=== PATIENT | female | born 1990 | race Caucasian/White ===

== ENCOUNTER 2018-11-14 18:06 | Emergency (ER) | payer BC ==
[2018-11-14] MEDS ORDERED: Adacel (T-DAP) 0.5 ML SYRINGE ONE (19:05)
== END 2018-11-14 19:31 | disposition home or self-care (01) ==
LOC: ERS 18:06
DX: S61.212A Laceration without foreign body of right middle finger without damage to nail, initial encounter (principal); W26.0XXA Contact with knife, initial encounter
CPT/HCPCS: 12001; 90471; 90715

== ENCOUNTER 2018-11-15 11:29 | Emergency (ER) | payer BC | END 2018-11-15 12:38 | disposition home or self-care (01) | LOC: ERS 11:29 | DX: S61.212D Laceration without foreign body of right middle finger without damage to nail, subsequent encounter (principal); W45.8XXA Other foreign body or object entering through skin, initial encounter | CPT/HCPCS: 99282 ==

== ENCOUNTER 2019-04-23 15:24 | Emergency (ER) | payer BC ==
[2019-04-23] MEDS ORDERED: Dexamethasone 4 mg/ml Vial ONE (15:57)
== END 2019-04-23 16:03 | disposition home or self-care (01) ==
LOC: ERS 15:24
DX: J02.9 Acute pharyngitis, unspecified (principal)
CPT/HCPCS: 93005; J1100

== ENCOUNTER 2019-12-08 15:02 | Day surgery (SDC) | payer BC ==
[2019-12-08 15:51] VITALS: BMI 30.8
[2019-12-08] MEDS ORDERED: hydrALAZINE 20 MG/ML VIAL SLOW IVP PRN (16:18)
--- NOTE | 2019-12-08 16:54 | ER ---
DATE OF SERVICE: 12/08/2019 TIME OF SERVICE: 1615 hours. PRESENTING COMPLAINT: A 36 weeks' gestation with decreased movement x1 day. HISTORY OF PRESENT ILLNESS: Ms. Real is a 29-year-old primigravida with EDC of 01/04, scheduled for a primary section next week due to spinal stenosis. She reports some decrease in movement over the past day, she reports positive movement, however, denies rupture of membranes, denies contractions. MANAGER SUPPORT SERVICES HISTORY: As noted. Blood type A positive. Antibody negative. Pap negative. Rubella immune. VDRL nonreactive. Hepatitis B, GC, and Chlamydia are negative. Normal 3-hour GTT. 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 SURGICAL HISTORY: Back surgery with spinal stenosis, recommended primary section. ALLERGIES: DENIES. MEDICATIONS: 1. Fluconazole. 2. vitamins. SOCIAL HISTORY: Denies tobacco, alcohol, or IV drug use. FAMILY HISTORY: Noncontributory. REVIEW OF SYSTEMS: Noncontributory. PHYSICAL EXAMINATION: GENERAL: White female, resting comfortably. VITAL SIGNS: Temperature 98.7, pulse 85, blood pressure 118/72. HEENT: Within normal limits. LUNGS: Clear to auscultation bilaterally. HEART: Regular rate and rhythm. ABDOMEN: Soft and nontender with a fundal height of 36. PELVIC: Deferred. EXTREMITIES: Without clubbing, cyanosis, or edema. DTRs are 1+. heart rate tracing was carried out. Nonstress test was performed for indication of decreased movement. Category 1 heart rate tracing with positive accelerations, no decelerations, and an occasional uterine irritability was noted. This is a reassuring and reactive heart rate tracing. IMPRESSION: Decreased movement with reactive nonstress test. On questioning with the patient, it sounds like movement decreased is consistent with normal decrease in movement in the last month of gestation. PLAN: Discussed with the patient appropriate monitoring and daily kick counts. The patient was given ER precautions to return if she has any perception of further decrease in movement. The patient has appointment with Dr. Mcdowell in 3 days. Primary section scheduled in 1 week. Job ID: [id number]
== END 2019-12-08 16:30 | disposition home or self-care (01) ==
LOC: L&D/OP 15:02
PROVIDERS: ATTEND Student in an Organized Health Care Education/Training Program
DX: O36.8130 Decreased fetal movements, third trimester, not applicable or unspecified (principal); O99.89 Other specified diseases and conditions complicating pregnancy, childbirth and the puerperium; M48.00 Spinal stenosis, site unspecified; Z3A.36 36 weeks gestation of pregnancy; Z88.2 Allergy status to sulfonamides

== ENCOUNTER 2019-12-15 05:34 | Inpatient (IN) | payer BC ==
[2019-12-15] MEDS ORDERED: hydrALAZINE 20 MG/ML VIAL SLOW IVP PRN ×2 (05:37→08:25)
[2019-12-15] MEDS ORDERED: Promethazine HCl 25 MG/ML VIAL IM PRN ×3 (05:37→08:41)
[2019-12-15] MEDS ORDERED: CEFAZOLIN 2 GM in Premix Bag 1 BAG IVPB SCH (05:37)
[2019-12-15] MEDS ORDERED: Bicitra 30 ML UDCUP PO SCH (05:37)
[2019-12-15] MEDS ORDERED: Butorphanol Tartrate 1 MG/ML VIAL SLOW IVP PRN ×2 (05:37→20:45)
[2019-12-15] MEDS ORDERED: Ondansetron PF 4 MG/2 ML Vial IVP PRN ×3 (05:37→08:41)
[2019-12-15] MEDS ORDERED: Acetaminophen 500 MG TAB PO PRN (05:37)
[2019-12-15] MEDS: Lactated Ringer's 1,000 ML IV SCH ×3 (06:10→22:36)
[2019-12-15 06:15] VITALS: BMI 31.8
[2019-12-15 06:36] LABS: Hemoglobin 13.1 g/dL (12.0-16.0); Mean Corpuscular HGB CONC 33.7 g/dL (32.0-36.0); Mean Corpuscular Hemoglobin 28.6 pg (27.0-31.0); Mean Corpuscular Volume 84.7 fL (78.0-98.0); Platelet Count 168 thou/uL (130-400); RBC Distribution Width 12.2 % (11.5-14.5); Red Blood Cell (RBC) Count 4.58 mill/uL (4.20-5.40); White Blood Cell (WBC) Count 8.6 thou/uL (4.8-10.8)
[2019-12-15 07:14] LABS: HBSAg Index 0.19 S/CO (0-0.99); Hep B Surf Ag Non-Reactive S/CO (NonReactive); Syphilis Antibody Nonreactive (Nonreactive); Syphilis Antibody Index 0.03 S/CO (<1.00 Non-Reactive)
[2019-12-15] MEDS ORDERED: MORPHINE 5 MG/10 ML PF VIAL ONE (07:21)
[2019-12-15] MEDS ORDERED: EPHEDRINE 25 MG/5 ML SYRINGE ONE (07:22)
[2019-12-15] MEDS ORDERED: Ondansetron PF 4 MG/2 ML Vial ONE (07:22)
[2019-12-15] MEDS ORDERED: Oxytocin 10 UNITS/ML VIAL ONE ×2 (07:22→08:14)
--- NOTE | 2019-12-15 07:25 | PDOC.LDHP ---
Labor and Delivery H&P Chief complaint: scheduled section HPI: 29yo at 37w0d by LMP here for PCS due to severe spinal stenosis and brucella exposure about 2-3 weeks ago at patient's job.Pt has been on prophylactic rifampin and is having serial brucella titers drawn through [employer] [facility]. Current gestational age (weeks): 37 Dating criteria: last menstrual period Grav: 1 Para: 0 Current complications: none Abnormal US findings: No Past Medical History: spinal stenosis Current medications: pre- vitamins Previous surgical history: none Allergies/Adverse Reactions: Allergies Allergy/AdvReac Type Severity Reaction Status Date / Time sulfacetamide Allergy Severe Anaphylaxis Verified 12/15/19 06:04 [From Sulfamide] Social history: none - Physical Exam Vital signs reviewed and normal: yes General: NAD Heart: RRR Lungs: CTAB Abdomen: gravid Extremeties: no edema FHT: category 1 Osborn contractions every: none - OB Labs RH: positive Antibody Screen: negative HIV: negative RPR: negative HEPSAg: negative 1 hour GCT: negative GBS: negative Urine drug screen: negative Rubella: immune - Assessment L&D Assessment: scheduled primary section - Plan Plan: admit to L&D, to OR for section, informed consent obtained, anesthesia consult for pain management
[2019-12-15] MEDS ORDERED: Lanolin Ointment 7 GM TUBE TOP PRN (08:25)
[2019-12-15] MEDS ORDERED: Bisacodyl 10 MG SUPP PR PRN (08:25)
[2019-12-15] MEDS ORDERED: Zolpidem Tartrate 5 MG TAB PO PRN (08:25)
[2019-12-15] MEDS ORDERED: Adacel (T-DAP) 0.5 ML SYRINGE IM ONE (08:25)
[2019-12-15] MEDS ORDERED: diphenhydrAMINE 25 MG CAP PO PRN (08:25)
[2019-12-15] MEDS ORDERED: HYDROmorphone 2 MG/ML VIAL SLOW IVP PRN (08:41)
[2019-12-15] MEDS ORDERED: Ondansetron HCl/PF 4 MG/2 ML Vial IVP PRN (08:41)
[2019-12-15] MEDS ORDERED: Naloxone HCl 0.4 mg/ml Vial IV PRN (08:41)
[2019-12-15] MEDS ORDERED: L&D-Morphine 4 MG/ML VIAL SLOW IVP PRN (08:41)
[2019-12-15] MEDS ORDERED: Meperidine HCl/PF 25 MG/ML VIAL SLOW IVP PRN (08:41)
[2019-12-15] MEDS ORDERED: Naloxone HCl 0.4 mg/ml Vial IVP PRN ×2 (08:41)
[2019-12-15] MEDS ORDERED: Promethazine HCl 25 MG SUPP PR PRN (08:41)
[2019-12-15] MEDS ORDERED: Ketorolac Tromethamine 30 MG/ML VIAL IVP SCH (08:45)
[2019-12-15] MEDS ORDERED: Communication Order-Pharmacy FS SCH (08:45)
--- NOTE | 2019-12-15 09:23 | PDOC.OPDEL ---
OB Operative/Delivery Note Delivery Dr/Surgeon: Jeremias Assist: Juan Pre-Delivery Diagnosis: scheduled section Procedure/Post Delivery Dx: primary low transverse CS (37w, brucella exposure, severe spinal stenosis) Weeks gestation: 37 Anesthesia: spinal - Findings A Weight: 6 lb 8 oz - 1 min: 9 - 5 min: 9 - Additional Findings/Plan Placenta delivered: spontaneous findings: low transverse hysterotomy without extension, normal uterus, normal tubes, normal ovaries Estimated blood loss: 600CC Post delivery plan: routine recovery
[2019-12-15] MEDS: diphenhydrAMINE 50 MG/ML VIAL IVP PRN ×2 (12:49→16:51)
[2019-12-15] MEDS: Rifampin 300 MG CAP PO SCH ×2 (13:49→22:37)
[2019-12-15] MEDS: Prenatal Vitamin 1 TAB PO SCH (13:49)
[2019-12-15] MEDS: Docusate Calcium (SURFAK) 240 MG CAP PO SCH ×2 (13:49→21:33)
[2019-12-15] MEDS: Ferrous Sulfate 325 MG TAB PO SCH (17:08)
[2019-12-15] MEDS: Ketorolac Tromethamine 30 MG/ML VIAL IVP PRN (17:23)
[2019-12-15] MEDS: Simethicone Chewable 80 MG TAB PO PRN (21:34)
[2019-12-15] MEDS: HYDROcodone/Acetaminophen 5/325 mg Tablet PO PRN (21:35)
[2019-12-16] MEDS: Ketorolac Tromethamine 30 MG/ML VIAL IVP PRN (01:14)
[2019-12-16] MEDS: Simethicone Chewable 80 MG TAB PO PRN ×3 (03:59→21:42)
[2019-12-16] MEDS: HYDROcodone/Acetaminophen 5/325 mg Tablet PO PRN ×5 (04:00→21:40)
[2019-12-16] MEDS: Lactated Ringer's 1,000 ML IV SCH ×3 (05:38→21:08)
[2019-12-16 05:43] LABS: Hemoglobin 11.8 g/dL (12.0-16.0); Mean Corpuscular HGB CONC 33.6 g/dL (32.0-36.0); Mean Corpuscular Hemoglobin 29.2 pg (27.0-31.0); Mean Platelet Volume 8.4 fL (7.4-10.4); Platelet Count 135 thou/uL (130-400); RBC Distribution Width 12.3 % (11.5-14.5); Red Blood Cell (RBC) Count 4.02 mill/uL (4.20-5.40); White Blood Cell (WBC) Count 11.2 thou/uL (4.8-10.8)
[2019-12-16] MEDS: Prenatal Vitamin 1 TAB PO SCH (08:02)
[2019-12-16] MEDS: Docusate Calcium (SURFAK) 240 MG CAP PO SCH ×2 (08:02→20:47)
[2019-12-16] MEDS: Ferrous Sulfate 325 MG TAB PO SCH ×2 (08:03→18:12)
--- NOTE | 2019-12-16 09:08 | PDOC.PP ---
Post Progress Note Post Day #: 1 Subjective: 29 yo s/p pLTCS with brucella exposure and severe spinal stenosis. Doing well. Abd pain but improved with pain medications. Endorses flatus. Minimal VB per nursing. Eating well. Spontaneously voiding. without issues. No concerns at this time. Vital Signs (12 hours) Temp Pulse Resp BP Pulse Ox 12/16/19 07:15 98.4 F 68 16 128/77 92 L 12/16/19 04:03 98.1 F 75 16 126/86 93 L 12/16/19 00:35 98.3 F 76 18 117/68 94 L Weight Weight 81.647 kg - Physical Examination General: NAD Respiratory: non-labored breathing Abdominal: no distention, appropriately TTP Skin: CS incision dry & intact Neurological: no gross focal deficits Psychiatric: A&Ox3, normal affect Result Diagrams: 12/16/19 05:21 Additional Labs: Post Labs Blood Type A POSITIVE 12/15/19 06:50 Hep Bs Antigen Non-Reactive S/CO (NonReactive) 12/15/19 06:24 (1) S/P section Code(s): Z98.891 - HISTORY OF UTERINE SCAR FROM PREVIOUS SURGERY Status: Acute (2) Brucella Code(s): A23.9 - BRUCELLOSIS, UNSPECIFIED Status: Acute (3) Spinal stenosis Code(s): M48.00 - SPINAL STENOSIS, SITE UNSPECIFIED Status: Acute - Assessment/Plan 1. pLTCS, POD1 -Doing well, bandaged removed -Minimal bleeding -Some skin exposed areas raw from bandage will apply topical triple abx in area -Remove rest of tefla pad that is adhered in the shower to prevent dehiscence -ADAT -Continue with wound care 2. Brucella exposure -Continue rifampin ppx 3. Severe spinal stenosis -Continue current management Dispo: D/C pending clinical course Discussed with Dr. Gorman Addendum - Attending - Attending Attestation Date/Time: 12/16/19 [id number] I personally evaluated the patient and discussed the management with Dr. Nassar I agree with the History, Examination, Assessment and Plan documented above with any addition or exceptions noted below.
[2019-12-16] MEDS: Triple Antibiotic Oint 1 GM Packet TOP SCH ×3 (12:13→20:47)
[2019-12-16] MEDS: Rifampin 300 MG CAP PO SCH ×2 (12:44→21:41)
[2019-12-16] MEDS: Ibuprofen 800 MG TAB PO SCH ×2 (14:02→21:41)
[2019-12-17] MEDS: Lactated Ringer's 1,000 ML IV SCH ×3 (04:16→23:47)
[2019-12-17] MEDS: HYDROcodone/Acetaminophen 5/325 mg Tablet PO PRN ×4 (05:19→19:04)
[2019-12-17] MEDS: Ibuprofen 800 MG TAB PO SCH ×3 (05:20→21:51)
--- NOTE | 2019-12-17 07:19 | PDOC.PP ---
Post Progress Note Post Day #: 2 Subjective: NAEO. Pain worsened when standing. Urinating without difficulty. Eating without difficulty. No significant VB. PO intake tolerated: yes Flatus: yes Ambulation: yes Vital Signs (12 hours) Temp Pulse Resp BP Pulse Ox 12/17/19 05:16 97.7 F 74 14 136/85 96 12/17/19 00:25 98.0 F 78 18 114/71 95 12/16/19 20:15 98.6 F 83 16 119/76 97 Weight Weight 81.647 kg - Physical Examination General: NAD Respiratory: non-labored breathing Abdominal: no distention, appropriately TTP Neurological: no gross focal deficits Psychiatric: A&Ox3, normal affect Result Diagrams: 12/16/19 05:21 Additional Labs: Post Labs Blood Type A POSITIVE 12/15/19 06:50 Hep Bs Antigen Non-Reactive S/CO (NonReactive) 12/15/19 06:24 (1) S/P section Code(s): Z98.891 - HISTORY OF UTERINE SCAR FROM PREVIOUS SURGERY Status: Acute (2) Brucella Code(s): A23.9 - BRUCELLOSIS, UNSPECIFIED Status: Acute (3) Spinal stenosis Code(s): M48.00 - SPINAL STENOSIS, SITE UNSPECIFIED Status: Acute - Assessment/Plan 1. pLTCS, POD1 -Doing well, incision clean, dry and intact with part of tefla still attached- will try for removal in shower -Some skin exposed areas raw from bandage will continue topical triple abx in area -ADAT -Continue with wound care 2. Brucella exposure -Continue rifampin ppx 3. Severe spinal stenosis -Continue current management Dispo: D/C likely tomorrow pending clinical course Discussed with Dr. Gorman
[2019-12-17] MEDS: Ferrous Sulfate 325 MG TAB PO SCH ×2 (08:49→17:10)
[2019-12-17] MEDS: Prenatal Vitamin 1 TAB PO SCH (08:51)
[2019-12-17] MEDS: Docusate Calcium (SURFAK) 240 MG CAP PO SCH ×2 (08:51→21:51)
[2019-12-17] MEDS: Rifampin 300 MG CAP PO SCH (08:55)
[2019-12-17] MEDS: Triple Antibiotic Oint 1 GM Packet TOP SCH ×3 (08:55→21:51)
[2019-12-17] MEDS: Simethicone Chewable 80 MG TAB PO PRN (21:51)
[2019-12-18] MEDS: Rifampin 300 MG CAP PO SCH ×3 (00:06→21:56)
[2019-12-18] MEDS: Ibuprofen 800 MG TAB PO SCH ×3 (05:11→20:59)
[2019-12-18] MEDS: HYDROcodone/Acetaminophen 5/325 mg Tablet PO PRN ×4 (05:13→21:56)
[2019-12-18] MEDS: Lactated Ringer's 1,000 ML IV SCH ×3 (06:09→22:09)
--- NOTE | 2019-12-18 09:26 | PDOC.PP ---
Post Progress Note Post Day #: 3 PO intake tolerated: yes Flatus: yes Ambulation: yes Vital Signs (12 hours) Temp Pulse Resp BP Pulse Ox 12/18/19 07:48 98.8 F 74 20 123/88 96 Weight Weight 180 lb - Physical Examination General: NAD Respiratory: non-labored breathing Abdominal: no distention, appropriately TTP Fundus firm & at: umb-2 Skin: CS incision dry & intact Neurological: no gross focal deficits Psychiatric: normal affect Result Diagrams: 12/16/19 05:21 Additional Labs: Post Labs Blood Type A POSITIVE 12/15/19 06:50 Hep Bs Antigen Non-Reactive S/CO (NonReactive) 12/15/19 06:24 - Assessment/Plan POD3 s/p PCS for spinal stenosis VSSAF Doing well postop, met all milestones Rh pos RImm DC home FU 2 wk
[2019-12-18] MEDS: Docusate Calcium (SURFAK) 240 MG CAP PO SCH ×2 (09:57→20:59)
[2019-12-18] MEDS: Prenatal Vitamin 1 TAB PO SCH (09:57)
[2019-12-18] MEDS: Triple Antibiotic Oint 1 GM Packet TOP SCH ×3 (09:58→21:56)
[2019-12-18] MEDS: Ferrous Sulfate 325 MG TAB PO SCH ×2 (09:59→17:11)
[2019-12-18] MEDS: Mupirocin 2% Ointment 22 GM Tube TOP SCH ×2 (15:14→21:02)
[2019-12-19] MEDS: Ibuprofen 800 MG TAB PO SCH (06:12)
[2019-12-19] MEDS: Lactated Ringer's 1,000 ML IV SCH (06:14)
[2019-12-19 08:34] VITALS: BP 131/92; TEMP 98.5
[2019-12-19] MEDS: Mupirocin 2% Ointment 22 GM Tube TOP SCH (09:40)
[2019-12-19] MEDS: Ferrous Sulfate 325 MG TAB PO SCH (09:41)
[2019-12-19] MEDS: Prenatal Vitamin 1 TAB PO SCH (09:41)
[2019-12-19] MEDS: Docusate Calcium (SURFAK) 240 MG CAP PO SCH (09:41)
[2019-12-19] MEDS: Triple Antibiotic Oint 1 GM Packet TOP SCH (09:41)
[2019-12-19] MEDS: Rifampin 300 MG CAP PO SCH (09:41)
--- NOTE | 2019-12-19 11:32 | PDOC.PP ---
Post Progress Note Post Day #: 4 PO intake tolerated: yes Flatus: yes Ambulation: yes Vital Signs (12 hours) Temp Pulse Resp BP Pulse Ox 12/19/19 08:34 98.5 F 85 20 131/92 H 97 12/19/19 08:05 97 Weight Weight 180 lb - Physical Examination General: NAD Respiratory: non-labored breathing Abdominal: no distention, appropriately TTP Fundus firm & at: umb-2 Skin: CS incision dry & intact Deviation from normal: denuded areas on abdomen from tape related to CS dressing , no e/o infection Neurological: no gross focal deficits Psychiatric: normal affect Result Diagrams: 12/16/19 05:21 Additional Labs: Post Labs Blood Type A POSITIVE 12/15/19 06:50 Hep Bs Antigen Non-Reactive S/CO (NonReactive) 12/15/19 06:24 - Assessment/Plan POD4 s/p PCS VSSAF BP mildly elevated no sx PIH, cont to monitor Met all other milestones Rh pos RImm Cont rifampin for brucella exposure DC home FU 2 week
--- NOTE | 2019-12-20 22:44 | PQF ---
Deanna Real JANELLE [id number] CLINICAL DOCUMENTATION CLARIFICATION FORM: POST DISCHARGE Addendum to original discharge summary date: ____ Late entry note date: __ DATE:12/20/2019 ATTN:LELA MCDOWELL Please exercise your independent, professional judgment in responding to the clarification form. Clinical indicators are provided on the bottom of this form for your review Please check appropriate box(s): [ ] Acute blood loss anemia [ X ] Post-op anemia related to acute blood loss [ ] Anemia NOS [ ] Other diagnosis [ ] Unable to determine In addition, please specify: Present on Admission (POA): [ ] Yes [ X] No [ ] Unable to determine For continuity of documentation, please document condition throughout progress notes and discharge summary. Thank You. CLINICAL INDICATORS - SIGNS / SYMPTOMS / LABS HGB-13.1 to 11.8, HCT-38.8 to 35.0-Documented in Laboratory Estimated blood [id number] in OB OP note by jenifer Mcdowell MD Primary low transverse -Documented in OB OP note by jenifer Mcdowell MD RISK FACTORS Primary low transverse -Documented in OB OP note by jenifer Mcdowell MD TREATMENTS: Ferrous sulfate 325 mg PO -Documented in Medication snaphot (This form is maintained as a part of the permanent medical record) 2014 [employer]. All Rights Reserved [email or web address]
--- NOTE | 2019-12-21 10:57 | OP ---
DATE OF PROCEDURE: 12/15/2019 PREOPERATIVE DIAGNOSES: 1. Intrauterine at 37 weeks and 0 days. 2. Severe spinal stenosis, declines trial of labor. 3. Varicella exposure in the third trimester. POSTOPERATIVE DIAGNOSES: 1. Intrauterine at 37 weeks and 0 days. 2. Severe spinal stenosis, declines trial of labor. 3. Varicella exposure in the third trimester. PROCEDURE PERFORMED: Primary low-transverse section via Pfannenstiel skin incision. ANESTHESIA: Spinal. RADIATION ENGINEER SURGEON: Carrie Martinez PA-C ESTIMATED BLOOD LOSS: 365 mL. COMPLICATIONS: None. DRAINS: Brice catheter. PATHOLOGY: None. FINDINGS: Male infant, cephalic presentation, clear amniotic fluid, weighing 6 pounds 8 ounces, Apgars of 9 and 9. Hysterotomy without extension. Normal uterus, ovaries, and tubes bilaterally. DESCRIPTION OF PROCEDURE: The patient was taken to the operating room, where spinal anesthesia was obtained without difficulty. The patient was prepped and draped in a sterile fashion in the dorsal supine position with a leftward tilt. After ensuring adequacy of anesthesia, a Pfannenstiel skin incision was made and carried down to the underlying subcutaneous tissue with the knife. The fascia was nicked in the midline with the Bovie and carried laterally with the Chase scissors. The superior aspect of the fascia was tented with 2 Aleksander's and dissected off the rectus with the Chase's. The inferior aspect of the fascia was tented with 2 Aleksander's and dissected off the rectus with the Chase's as well down to the pubic symphysis. The rectus was bluntly divided in the midline and the peritoneum was bluntly entered into and manually retracted. The Neftaly O retractor was placed, and the lower uterine segment was incised in a transverse fashion and extended with a Reyes maneuver. The 's head was brought to the hysterotomy and delivered easily with fundal pressure. The 's cord was clamped after doing delayed cord clamping and infant handed to awaiting Christopher team. Cord blood was obtained and the placenta was allowed to spontaneously deliver. The uterus was exteriorized, cleared of all clots and debris, and the posterior cul-de-sac was left out. The uterus was placed back into the abdomen and repaired with a #1 Monocryl in a running locking fashion with excellent hemostasis. The pelvis was copiously irrigated and suctioned. Hemostasis was noted of the hysterotomy. The Neftaly O retractor was removed and the rectus muscles were examined and noted to be hemostatic. The fascia was reapproximated with a 0 PDS times x1 suture with excellent reapproximation. The subcutaneous tissue was irrigated and cauterized of any bleeders and reapproximated with a 2-0 plain gut in a running fashion. The skin was closed with 4-0 Monocryl in a subcuticular fashion. Dermabond was applied as well as pressure dressing. The patient tolerated the procedure well. Sponge, lap, and needle counts were correct x2. The patient was taken to recovery room in stable condition. The patient received Ancef 2 g prior to the procedure. Job ID: [id number]
== END 2019-12-19 12:46 | disposition home or self-care (01) | DRG 787 ==
LOC: L&D 05:34 → 3SW 12:07
PROVIDERS: ADMIT Student in an Organized Health Care Education/Training Program; ATTEND Student in an Organized Health Care Education/Training Program
PROC: 10D00Z1 Extraction of Products of Conception, Low, Open Approach (ICD-10-PCS; principal; 2019-12-15)
DX: O75.89 Other specified complications of labor and delivery (principal); D62 Acute posthemorrhagic anemia; O99.02 Anemia complicating childbirth; M48.00 Spinal stenosis, site unspecified; Z3A.37 37 weeks gestation of pregnancy; Z37.0 Single live birth; Z20.818 Contact with and (suspected) exposure to other bacterial communicable diseases
CPT/HCPCS: 36415; 51702; 85027; 86780; 86850; 86900; 86901; 87340; J0690; J1200; J1885; J2274; J2405; J2590; Q0163

== ENCOUNTER 2022-11-23 13:30 | Emergency (ER) | payer OTHER, BC ==
[2022-11-23] MEDS ORDERED: Acetaminophen 325 MG TAB ONE (16:30)
[2022-11-23] MEDS ORDERED: Triple Antibiotic Oint 1 GM Packet ONE (16:30)
== END 2022-11-23 16:35 | disposition home or self-care (01) ==
LOC: ERS 13:30
DX: S01.551A Open bite of lip, initial encounter (principal); W54.0XXA Bitten by dog, initial encounter; Y92.89 Other specified places as the place of occurrence of the external cause
CPT/HCPCS: 99283